=== PATIENT | female | born 1965 | race Caucasian/White ===

== ENCOUNTER → 2016-05-27 | Outpatient (CLI) | payer BC ==
[~2016-05-27] MED LIST: ALAV10TA10 PO; AMBI10TA PO; ASPI1TAB69 PO; LEXA10TA PO; LIPI20TA PO; ROSU20 PO; VALT500T PO
[2016-05-27 11:38] LABS: AUTOMATED NEUTROPHIL # 3.2 TH/MM3 (1.8-7.7); BASOPHIL # 0.1 TH/MM3 (0-0.2); BASOPHIL % 1.5 % (0.0-2.0); EOSINOPHIL # 0.1 TH/MM3 (0-0.4); EOSINOPHIL % 1.2 % (0.0-4.0); HEMATOCRIT 41.2 % (35.0-46.0); HEMO FLAGS DIFF FINAL; LYMPH % 30.9 % (9.0-44.0); LYMPHOCYTE # 1.8 TH/MM3 (1.0-4.8); MEAN CELL VOLUME 96.2 FL (80.0-100.0); MEAN CORPUSCULAR HEMOGLOBIN 32.8 PG (27.0-34.0); MEAN CORPUSCULAR HGB CONC 34.1 % (32.0-36.0); MONO % 12.2 % (0.0-8.0); NEUT % 54.2 % (16.0-70.0); PLATELET COUNT 201 TH/MM3 (150-450); RED BLOOD COUNT 4.28 MIL/MM3 (4.00-5.30); RED CELL DISTRIBUTION WIDTH 12.7 % (11.6-17.2); WHITE BLOOD COUNT 5.9 TH/MM3 (4.0-11.0)
[2016-05-27 11:39] LABS: BLOOD, URINE NEG (NEG); COMMENT (UR) CULT NOT INDICATED; CULTURE IF INDICATED CULT NOT INDICATED; GLUCOSE,URINE NEG (NEG); KETONE, URINE NEG (NEG); MUCUS URINE FEW /lpf (OCC); NITRITE,URINE NEG (NEG); PH, URINE 5.5 (5.0-8.5); URINE COLOR LIGHT-YELLOW (YELLW/STRAW)
== END ==
LOC: CPRE 09:43
PROVIDERS: ATTEND Obstetrics & Gynecology
DX: Z01.810 Encounter for preprocedural cardiovascular examination (principal); Z01.812 Encounter for preprocedural laboratory examination; N92.4 Excessive bleeding in the premenopausal period
CPT/HCPCS: 36415; 81001; 85025

== ENCOUNTER → 2016-05-29 | Day surgery (SDC) | payer BC ==
--- NOTE | 2016-05-28 15:56 | MH ---
cc: CARMEN TREJO DATE OF ADMISSION 05/29/2016 ADMISSION DIAGNOSIS Perimenopausal bleeding. HISTORY OF PRESENT ILLNESS The patient is 51-year-old white female para 0-0-1-0 with history of atypical vaginal bleeding since March of 2014. Had a D&C in January of 2016 which was benign. Has been tried on medical therapy. Had tended to bleed intermittently on a very heavy basis. Also reports some increasing discomfort. Lab studies from 05/13/2016 are consistent with menopause. Pelvic ultrasound from 05/14/2016 showed uterus measured 6.9 cm. Endometrium was 3 mm. She is now admitted for surgical evaluation. PAST MEDICAL HISTORY Previous surgery: 1. She had rectal sphincter surgery 2012. 2. Dilation and curettage 2014. 3. Left carpal tunnel 2015. 4. Breast augmentation 1994, redo 2015. MEDICATIONS Are: 1. Ambien. 2. Lexapro. 3. Valtrex. 4. Atorvastatin. 5. Vitamins. ALLERGIES None. TRANSFUSIONS None. OBSTETRICAL HISTORY One ETP age 18. SOCIAL HISTORY She is , employed at [employer]. Alcohol occasional. Tobacco none. Drugs none. PHYSICAL EXAMINATION GENERAL: A well-nourished, well-developed white female. VITAL SIGNS: Stable. HEENT: Examination is normal. CHEST: Clear. HEART: Regular rate. BREASTS: Symmetrical. ABDOMEN: Benign. PELVIC: Normal external genitalia and Bartholin's, urethral, Melville's. Vagina is normal. Cervix is normal. Uterus is normal size, shape, anterior. No adnexal masses. ASSESSMENT As above. PLAN She is now admitted for outpatient hysteroscopy, D&C. While in the office I explained the procedures, the risks, benefits, complications and the patient would like to proceed. MD ANSON Bird/[email or web address] /3:22 PM /3:35 PM
[~2016-05-29] VITALS: Ht 167.6 cm; Wt 58.2 kg
[~2016-05-29] MED LIST changes: +ACETAMINOPHEN 1000 MG/100 ML VIAL IV ONE; +APREPITANT 40 MG CAP ONE; +DEXAMETHASONE SOD PHOS 4 MG/ML VIAL ONE; +DO NOT ADM ANY ANTICOAGULANT DRUGS XX PRN; +FAMOTIDINE 20 MG/2 ML VIAL ONE; +KETOROLAC TROMETHAMINE 60 MG/2 ML (IM) VIAL IM ONE; +METOCLOPRAMIDE HCL 10 MG/2 ML VIAL IV PRN; +MIDAZOLAM HCL 2 MG/2 ML VIAL ONE; +ONDANSETRON HCL 4 MG/2 ML VIAL IV PUSH ONE; +PROPOFOL 200 MG/20 ML AMP IV ONE; +SODIUM CHLORIDE 0.9% INJ 100 ML ONE; +ceFAZolin INJ 1,000 MG VIAL ONE; +oxyCODONE/ACETAMINOPHEN 5 MG/325 MG TAB PO PRN
[2016-05-29 06:28] VITALS: BP 131/81; PULSE 64; RESP 20; TEMP 97.9; O2SAT 100
[2016-05-29 09:30] VITALS: BP 107/68; PULSE 62; RESP 16; TEMP 97.9; O2SAT 100
--- NOTE | 2016-05-30 08:20 | MP ---
cc: CARMEN TREJO DATE OF SURGERY: 05/29/2016 PREOPERATIVE DIAGNOSIS Perimenopausal menorrhagia. POSTOPERATIVE DIAGNOSIS Perimenopausal menorrhagia. PROCEDURE Hysteroscopy and D&C. ANESTHESIA General LMA. ESTIMATED BLOOD LOSS EBL for the procedure less than 10 cc. FLUIDS 400 cc crystalloid. OBJECTIVE FINDINGS Following the induction of adequate general LMA anesthesia the patient was prepped and draped supine on the operating table in the dorsal lithotomy position in the usual sterile fashion with the bladder being drained with in and out catheterization. Exam under anesthesia revealed a normal size, shape, anterior uterus. No adnexal masses palpable. A heavy weighted speculum was placed in the posterior fornix of the vagina. The anterior lip of the cervix was grasped with a single-tooth tenaculum. The cervix and uterus sounded to 7 cm. The cervix was then dilated to a #18 Hanks dilator. The scope was then passed through a normal endocervix and normal endometrium. The scope was withdrawn. Endocervical curettings were obtained with a small serrated curette, endometrium with a small sharp curette. The cervix tenaculum site was sutured with 2-0 chromic for hemostasis. All instruments were removed. All counts were correct. The patient's legs were taken out of the stirrups and she was awakened and taken to the recovery room in good condition. MD ANSON Bird/[email or web address] /7:59 AM /8:10 AM
== END | disposition home or self-care (01) ==
LOC: HSDC 05:37
PROVIDERS: ATTEND Obstetrics & Gynecology
DX: N92.4 Excessive bleeding in the premenopausal period (principal); E78.5 Hyperlipidemia, unspecified
CPT/HCPCS: 00952; 58558; 88305; J0131; J0690; J1100; J1885; J2250; J2405; J3010; J8501